=== PATIENT | male | born 1990 | race Hispanic/Latino ===

== ENCOUNTER 2020-05-29 12:04 | Emergency (ER) | payer SELFPAY ==
--- NOTE | ~2020-05-29 | CT_ITS ---
EXAMINATION: CT abdomen pelvis w con INDICATION: Right lower quadrant pain TECHNIQUE: Computed tomographic images of the abdomen and pelvis were obtained after the administrati on of 100 cc of Omnipaque 350 intravenous contrast. The dose-length product (DLP) was 1395.65 mGy-cm. Automated exposure control and iterative reconstruction technique were employed. COMPARISON: None available FINDINGS: The lung bases are clear. The heart size is normal. Bilateral gynecomastia is noted. The li deana, spleen, pancreas, gallbladder, and adrenal glands are normal. The kidneys are unremarkable. No p athologically enlarged abdominal or pelvic lymph nodes are identified. There is no free intraperitone al gas or evidence of bowel obstruction. The appendix is normal. IMPRESSION: 1. No CT correlate for the patient's symptoms. Reviewed, dictated and finalized at location A. [employer]
[2020-05-29 12:23] VITALS: BP 171/92; PULSE 110; RESP 18; TEMP 35.9; O2SAT 99
--- NOTE | 2020-05-29 12:47 | ED.GENADULT ---
HPI - General Adult General Chief complaint: Abdominal Pain Stated complaint: right flank pain Time Seen by Provider: 05/29/20 12:34 History of Present Illness HPI narrative: Patient is a 30-year-old male who presents ER with right lower quadrant abdominal pain. Ongoing for 2 days. Increasing over the last day. No improvement with ibuprofen. Radiates down around the lower part of his abdomen. Also has some pain in his right low back. No trauma/nausea/vomiting/diarrhea/constipation. Denies urinary symptoms. Has not had similar pain in the past. Worse with palpation. No alleviating factors. Related Data Allergies Allergy/AdvReac Type Severity Reaction Status Date / Time No Known Allergies Allergy Unverified 03/09/17 10:58 Review of Systems Review of Systems: All systems reviewed & are unremarkable except as noted in HPI and below Constitutional: Constitutional: Denies chills, Denies fever(s) and Denies weakness Gastrointestinal: Gastrointestinal: Reports abdominal pain, Denies constipation, Denies diarrhea, Denies nausea and Denies vomiting Genitourinary: Genitourinary: Denies oliguria, Denies dysuria and Denies urinary frequency Musculoskeletal: Musculoskeletal: Reports back pain and Denies muscle cramps Neurologic: Denies focal weakness and Denies numbness PMFSH Past Medical History Medical History (Updated 05/29/20 @ 15:28 by Juan Villalba MD) Diabetes type 2, controlled Surgical History Surgical History (Updated 05/29/20 @ 12:48 by Juan Villalba MD) No pertinent past surgical history Social History Social History (Updated 05/29/20 @ 12:48 by Juan Villalba MD) Smoking status: Never smoker Exam Narrative: Exam Narrative: GENERAL: Well-appearing, well-nourished, and in no acute distress. HEAD: Normocephalic, atraumatic. CHEST: Clear to auscultation. No respiratory distress. HEART: Regular rate and rhythm. Normal peripheral pulses. ABDOMEN: Soft, mild right lower quadrant tenderness without guarding, nondistended, no CVA tenderness. EXTREMITIES: Normal range of motion. No edema. Back: Mild tenderness right side paraspinal musculature near L4-L5. No midline tenderness. SKIN: Warm, dry, no rash. NEURO: Alert and oriented x3. PSYCH: Normal mood and affect. Course Course Emergency Course: Informed of results. Unremarkable evaluation. Discharge home. Vital Signs Vital signs: Vital Signs Temperature 96.6 F L 05/29/20 12:23 Pulse Rate 110 H 05/29/20 12:23 Respiratory Rate 18 05/29/20 12:23 Blood Pressure 171/92 H 05/29/20 12:23 Pulse Oximetry 99 05/29/20 12:23 Temperature 96.6 F L 05/29/20 12:23 Pulse Rate 110 H 05/29/20 12:23 Respiratory Rate 18 05/29/20 12:23 Blood Pressure 171/92 H 05/29/20 12:23 Pulse Oximetry 99 05/29/20 12:23 Medical Decision Making Vital Signs Vital Signs: Vital Signs Temperature 96.6 F L 05/29/20 12:23 Pulse Rate 110 H 05/29/20 12:23 Respiratory Rate 18 05/29/20 12:23 Blood Pressure 171/92 H 05/29/20 12:23 Pulse Oximetry 99 05/29/20 12:23 Temperature 96.6 F L 05/29/20 12:23 Pulse Rate 110 H 05/29/20 12:23 Respiratory Rate 18 05/29/20 12:23 Blood Pressure 171/92 H 05/29/20 12:23 Pulse Oximetry 99 05/29/20 12:23 Lab Data Result diagrams: 05/29/20 13:02 05/29/20 13:02 Labs: Lab Results 05/29/20 05/29/20 05/29/20 Range/Units 12:21 13:02 13:02 WBC 9.0 (4.5-10.0) K/mm3 RBC 5.74 (4.6-6.20) M/mm3 Hgb 15.5 (14.0-18.0) g/dL Hct 45.3 (42.0-52.0) % MCV 78.9 L (80-100) fl MCH 27.0 (26-34) pg MCHC 34.2 (32-36) g/dl RDW 13.2 (11.5-14.5) % Plt Count 231 (150-375) k/mm3 MPV 10.3 (7.4-10.4) fl Immature Gran % (Auto) 0.6 H (0-0.5) % Neut % (Auto) 72.2 (45.5-73.1) % Lymph % (Auto) 19.0 (18.3-44.2) % [place] % (Auto) 5.3 (2.6-8.5) % Eos % (Auto) 2.3 (0-4.4) % Baso % (Auto) 0.6 (0
[2020-05-29] MEDS: SODIUM CHLORIDE 0.9% IV 1,000 ML 999 ML IV CONT (13:04)
[2020-05-29] MEDS: KETOROLAC 30 MG/ML VIAL (*BKC) IV PUSH (13:04)
[2020-05-29 13:13] LABS: Add Urine Microscopic? YES; Appearance Urine Clear (Clear); Bilirubin Urine Negative (Negative); Blood Urine 1+ (Negative); Color Urine Straw (Yellow); Glucose Urine UA 3+ mg/dL (Negative); Ketones Urine Negative (Negative); Leukocyte Esterase Ur Negative LEU/UL (Negative); Mucus Urine Rare /lpf; Nitrate Urine Negative (Negative); Protein Urine Negative (Negative); RBC Urine 0-2 /hpf (0-2); Squamous Epithelial Cell Urine Rare /hpf (Few); Urobilinogen Urine Negative mg/dL (<2.0); WBC Urine 0-3 /hpf
[2020-05-29 13:22] LABS: Anion Gap 11 mmol/L (8-16); Blood Urea Nitrogen 12 mg/dL (9-20); Calcium 8.9 mg/dL (8.4-10.2); Carbon Dioxide 27 mmol/L (22-30); Chloride 97 mmol/L (98-107); Estimated CRCL calculation 202 ml/min; Estimated Glomerular Filt Rate > 60; Glucose 429 mg/dL (75-110); Potassium 4.4 mmol/L (3.4-5.0); Sodium 135 mmol/L (137-145)
[2020-05-29 13:44] LABS: Basophils Absolute Auto 0.1 K/mm3 (0.0-0.1); Basophils Percent Auto 0.6 % (0.2-1.2); Eosinophils Absolute Auto 0.2 K/mm3 (0-0.3); Eosinophils Percent Auto 2.3 % (0-4.4); Hematocrit 45.3 % (42.0-52.0); Hemoglobin 15.5 g/dL (14.0-18.0); Immature Granulocyte Absolute 0.05 K/mm3 (0.00-0.031); Immature Granulocyte Percent A 0.6 % (0-0.5); Lymphocytes Absolute Auto 1.72 K/mm3 (0.9-3.2); Mean Corpuscular HGB Conc 34.2 g/dl (32-36); Mean Corpuscular Volume 78.9 fl (80-100); Mean Platelet Volume 10.3 fl (7.4-10.4); Monocytes Absolute Auto 0.5 K/mm3 (0.1-0.6); Monocytes Percent Auto 5.3 % (2.6-8.5); Neutrophils Absolute Auto 6.5 K/mm3 (1.3-6.7); Neutrophils Percent Auto 72.2 % (45.5-73.1); Platelet Count Result 231 k/mm3 (150-375); Red Blood Count 5.74 M/mm3 (4.6-6.20); Red Cell Distribution Width 13.2 % (11.5-14.5)
--- NOTE | 2020-05-29 14:04 | PC.NURSE ---
patient just returned from CT.
[2020-05-29 15:43] VITALS: BP 142/88; PULSE 88; RESP 20; TEMP 37; O2SAT 100
== END 2020-05-29 15:44 | disposition home or self-care (01) ==
PROVIDERS: Emergency Provider Emergency Medicine; PCP Family Medicine
DX: R10.31 Right lower quadrant pain (principal); E11.9 Type 2 diabetes mellitus without complications
CPT/HCPCS: 36415; 74177; 80048; 81001; 85025; 96361; 96374; 99284; J1885; J7030; Q9967

== ENCOUNTER 2023-06-19 10:56 | Outpatient (CLI) | payer SELFPAY ==
[2023-06-19 11:25] LABS: Alanine Aminotransferase 23 U/L (6-50); Albumin Level 4.2 g/dL (3.5-5.1); Alkaline Phosphatase 109 U/L (38-126); Anion Gap 11 mmol/L (8-16); Aspartate Amino Transferase 24 U/L (17-59); Bilirubin,Total 0.9 mg/dL (0.2-1.3); Blood Urea Nitrogen 17 mg/dL (9-20); Calcium 9.5 mg/dL (8.4-10.2); Carbon Dioxide 29 mmol/L (22-30); Chloride 99 mmol/L (98-107); Estimated Glomerular Filt Rate > 60; Glucose 163 mg/dL (65-110); Sodium 139 mmol/L (137-145)
[2023-06-19 11:26] LABS: Hemoglobin A1C 7.6 % (<5.7)
== END 2023-06-19 10:57 | disposition home or self-care (01) ==
LOC: ANHLAB 10:57
PROVIDERS: PCP Family Medicine; Visit Provider Family Medicine
DX: I10 Essential (primary) hypertension (principal); E11.9 Type 2 diabetes mellitus without complications
CPT/HCPCS: 36415; 80053; 83036